=== PATIENT | male | born 1990 | race Caucasian/White ===

== ENCOUNTER 2018-12-08 11:02 | Day surgery (SDC) | payer BC, OTHER ==
[2018-12-07 13:52] VITALS: BMI 23.7
[2018-12-08 13:08] VITALS: TEMP 97.9
[2018-12-08 13:51] VITALS: BP 106/56; PULSE 61
--- NOTE | 2018-12-12 16:11 | PATH ---
Surgical Pathology Report Patient Name: BELINDA ALVARADO [facility]. Rec. #: [id number] /Age/Gender: 1990 (Age: 28) / M Account: [id number] Location: [facility]-ENDOSCOPY Taken: 12/08/2018 Received: 12/11/2018 Reported: 12/12/2018 Physicians: Kaykay Salinas M.D. Specimen(s) Received A: BX 2ND PORTION DUODENUM B: BX ANTRUM C: BX DISTAL AND MID ESOPHAGUS Clinical History Heartburn, reflux, dysphagia, lower retrosternal discomfort Postoperative diagnosis: Nonerosive reflux disease Final Diagnosis A. SECOND PORTION DUODENUM, BIOPSY: DUODENUM MUCOSA WITH NO DIAGNOSTIC ABNORMALITIES. NO HISTOLOGIC EVIDENCE OF CELIAC DISEASE. B. ANTRUM, BIOPSY: GASTRIC MUCOSA WITH CHRONIC GASTRITIS AND INTESTINAL METAPLASIA. IMMUNOSTAIN FOR H. PYLORI IS NEGATIVE. C. DISTAL AND MID ESOPHAGUS, BIOPSY: ESOPHAGEAL MUCOSA WITH REFLUX ESOPHAGITIS. NEGATIVE FOR INTESTINAL METAPLASIA. NO HISTOLOGIC EVIDENCE OF EOSINOPHILIC ESOPHAGITIS. Electronically Signed Sneha Bautista M.D. Gross Description A. Received in formalin, labeled "biopsy duodenum second portion" are 3 tinajero, irregular portions of soft tissue ranging from 0.4-0.5 cm. in greatest dimension. The specimens are submitted in toto in one cassette. B. Received in formalin, labeled "biopsy antrum" are 2 tinajero, irregular portions of soft tissue measuring 0.3 and 0.4 cm. in greatest dimension. The specimens are submitted in toto in one cassette. C. Received in formalin, labeled "biopsy distal and mid esophagus" are 3 tinajero, irregular portions of soft tissue ranging from 0.2-0.5 cm. in greatest dimension. The specimens are submitted in toto in one cassette. DL12/11/2018 saudi12/11/2018
== END 2018-12-08 13:40 | disposition home or self-care (01) ==
LOC: JASU-ENDO 11:02
PROVIDERS: ATTEND Internal Medicine Gastroenterology
PROC: 0DB28ZX Excision of Middle Esophagus, Via Natural or Artificial Opening Endoscopic, Diagnostic (ICD-10-PCS; 2018-12-08)
PROC: 0DB38ZX Excision of Lower Esophagus, Via Natural or Artificial Opening Endoscopic, Diagnostic (ICD-10-PCS; principal; 2018-12-08 11:15)
DX: K21.9 Gastro-esophageal reflux disease without esophagitis (principal)
CPT/HCPCS: 88305-TC; 88342-TC

== ENCOUNTER 2023-01-28 04:47 | Day surgery (SDC) | payer BC ==
[2023-01-26 11:47] VITALS: BMI 23.1
[2023-01-28 14:07] VITALS: TEMP 97.5
[2023-01-28 14:31] VITALS: RESP 17
[2023-01-28 15:19] VITALS: BP 100/60; PULSE 64
== END 2023-01-28 15:10 | disposition home or self-care (01) ==
LOC: JASU-ENDO 04:47
PROVIDERS: ATTEND Internal Medicine Gastroenterology
PROC: 0DBB8ZX Excision of Ileum, Via Natural or Artificial Opening Endoscopic, Diagnostic (ICD-10-PCS; 2023-01-28)
PROC: 0DB98ZX Excision of Duodenum, Via Natural or Artificial Opening Endoscopic, Diagnostic (ICD-10-PCS; 2023-01-28)
PROC: 0DB78ZX Excision of Stomach, Pylorus, Via Natural or Artificial Opening Endoscopic, Diagnostic (ICD-10-PCS; 2023-01-28)
PROC: 0DB28ZX Excision of Middle Esophagus, Via Natural or Artificial Opening Endoscopic, Diagnostic (ICD-10-PCS; 2023-01-28)
PROC: 0DB38ZX Excision of Lower Esophagus, Via Natural or Artificial Opening Endoscopic, Diagnostic (ICD-10-PCS; 2023-01-28)
PROC: 0DBH8ZX Excision of Cecum, Via Natural or Artificial Opening Endoscopic, Diagnostic (ICD-10-PCS; principal; 2023-01-28 13:30)
DX: Z12.11 Encounter for screening for malignant neoplasm of colon (principal); K64.8 Other hemorrhoids; K21.00 Gastro-esophageal reflux disease with esophagitis, without bleeding; K29.50 Unspecified chronic gastritis without bleeding
CPT/HCPCS: 88305-TC; 88342-TC